=== PATIENT | female | born 1955 | race Hispanic/Latino ===

== ENCOUNTER 2023-03-21 15:59 | Emergency (ER) | payer SELFPAY ==
[~2023-03-21] VITALS: Ht 160 cm; Wt 99.8 kg
[2023-03-21 17:08] LABS: BASOPHILS # (AUTO) 0.03 K/uL (0.00-0.20); BASOPHILS % (AUTO) 0.3 % (0.0-5.0); EOSINOPHILS # (AUTO) 0.19 K/uL (0.00-0.70); EOSINOPHILS % (AUTO) 2.1 % (0.0-8.0); HEMATOCRIT 39.9 % (36-48); IMMATURE GRANULOCYTE ABSOLUTE 0.03 K/uL (0-1); LYMPHOCYTES # (AUTO) 2.2 K/uL (1.0-4.8); LYMPHOCYTES % (AUTO) 24.3 % (21.0-51.0); MEAN CORPUSCULAR HEMOGLOBIN 31.9 pg (27.0-33.0); MEAN CORPUSCULAR HGB CONC 32.3 g/dL (32.0-36.0); MEAN CORPUSCULAR VOLUME 98.5 fL (79-99); MONOCYTES # (AUTO) 0.6 K/uL (0.1-1.0); MONOCYTES % (AUTO) 6.7 % (3.0-13.0); NEUTROPHILS # (AUTO) 6.1 K/uL (1.8-7.7); NEUTROPHILS % (AUTO) 66.3 % (40.0-77.0); PLATELET COUNT (AUTO) 307 K/uL (130-400); RED BLOOD CELL COUNT(AUTO) 4.05 MIL/uL (4.00-5.50); RED CELL DISTRIBUTION WIDTH 13.3 % (11.0-15.5); WHITE BLOOD COUNT (AUTO) 9.2 K/uL (4.8-10.8)
[2023-03-21 17:24] LABS: CREATININE 0.8 mg/dL (0.5-1.5); POTASSIUM 3.5 mmol/L (3.5-5.1)
[2023-03-21 17:30] LABS: ALBUMIN 3.3 g/dL (3.5-5.0); BILIRUBIN,TOTAL 0.3 mg/dL (0.2-1.0)
[2023-03-21] MEDS ORDERED: LIDOCAINE 1%-EPI 1:100,000 20 ML VIAL IJ ONE (19:44)
[2023-03-21] MEDS ORDERED: LIDOCAINE 1%-EPI 1:100,000 20 ML VIAL IJ SCH (20:00)
[2023-03-21 20:19] VITALS: BP 165/69; PULSE 74; RESP 14; O2SAT 96
== END 2023-03-21 21:17 | disposition home or self-care (01) ==
LOC: EDH 15:59
DX: S01.01XA Laceration without foreign body of scalp, initial encounter (principal); W18.39XA Other fall on same level, initial encounter; Y93.89 Activity, other specified; Y92.89 Other specified places as the place of occurrence of the external cause; Y99.8 Other external cause status; E78.00 Pure hypercholesterolemia, unspecified; I10 Essential (primary) hypertension
CPT/HCPCS: 99285; 70450; 84484; 80053; 85025; 36415; 73000; 73060; 72125; 12005; 93005; J3490